=== PATIENT | male | born 1995 | race Asian ===

== ENCOUNTER 2023-09-02 01:14 | Emergency (ER) | payer MEDICAID ==
[~2023-09-02] VITALS: Ht 170.2 cm; Wt 60.0 kg
[2023-09-02 01:26] VITALS: BP 125/82; PULSE 76; RESP 18; TEMP 98.5; O2SAT 99
[2023-09-02] MEDS: ACETAMINOPHEN 325MG TABLET PO ONE (01:45)
[2023-09-02] MEDS ORDERED: IBUP-2028 PO (02:36)
== END 2023-09-02 02:50 | disposition home or self-care (01) ==
LOC: ER 01:14
DX: M54.50 Low back pain, unspecified (principal); F19.90 Other psychoactive substance use, unspecified, uncomplicated
CPT/HCPCS: 72100; 99283